=== PATIENT | male | born 1935 | race Caucasian/White ===

== ENCOUNTER 2017-05-10 19:02 | Inpatient (IN) | payer OTHER, BC ==
[~2017-05-10] VITALS: Ht 175.3 cm; Wt 67.0 kg
[~2017-05-10 19:02] MED LIST: ARICEPT10 MG PO; ARICEPT5 MG PO; CILOSTAZOL100 MG PO; COZAAR100 MG PO; CRESTOR10 MG PO; LO-DOSE ASPIRIN81 M1 PO; TUMS500 MG PO; ZOFRAN4 MG PO; [UNRECOGNIZED DRUG - OTHER] PO
[2017-05-10 19:33] LABS: EOSINOPHIL (%) 1.5 % (0-5); EOSINOPHIL COUNT 0.2 K/uL (0-0.3); HEMATOCRIT 36.4 % (38.0-50.0); IMMATURE GRANULOCYTE (%) 0.8 % (0.0-0.7); IMMATURE GRANULOCYTE COUNT 0.1 K/uL; LYMPHOCYTE COUNT 0.6 K/uL (1.0-2.8); MCH 29.4 PG (29.0-34.0); MCHC 32.4 G/DL (30.0-36.0); MCV 90.5 FL (86-99); MEAN PLAT.VOLUME 10.4 uM^3 (9.0-12.4); MONOCYTE (%) 13.9 % (3-12); MONOCYTE COUNT 1.4 K/uL (0-0.8); NEUTROPHIL (%) 77.6 % (45-76); PLATELET COUNT 204 K/uL (156-360); RBC DIS.WIDTH-CV 14.2 % (11.8-14.6); RBC DIS.WIDTH-SD 47.8 % (39-53); RED BLOOD COUNT 4.02 M/uL (4.00-5.50); WHITE BLOOD COUNT 10.3 K/uL (4.1-10.2)
[2017-05-10 19:43] LABS: CHLORIDE 101 mEq/L (99-109); SODIUM 134 mEq/L (136-147)
[2017-05-10 19:45] LABS: GLUCOSE 111 mg/dL (70-99)
[2017-05-10 19:47] LABS: ANION GAP 11 MEQ/L (2-14); TOTAL BILIRUBIN 0.5 mg/dL (0.0-1.0)
[2017-05-10 19:49] LABS: ALKALINE PHOSPHATASE 71 IU/L (3-129); GFR ESTIMATE (CALCULATED) > 59 mL/min/
[2017-05-10 19:50] LABS: UREA NITROGEN (BUN) 19 mg/dL (9-23)
[2017-05-10] MEDS ORDERED: DONEPEZIL HCL10 MG PO (21:00)
[2017-05-10] MEDS ORDERED: ROSUVASTATIN CAL5 MG PO (21:00)
[2017-05-10] MEDS ORDERED: TERBINAFINE HC250 MG PO (21:02)
[2017-05-10] MEDS ORDERED: MEMANTINE HCL10 MG PO (21:02)
[2017-05-10 22:15] LABS: ADD MIUA? NO; BILIRUBIN NEGATIVE; BLOOD NEGATIVE; COLOR YELLOW ((YELLOW)); GLUCOSE (STRIP) NEGATIVE; KETONES NEGATIVE; LEUKOCYTES NEGATIVE; NITRITE NEGATIVE; PROTEIN (STRIP) NEGATIVE; SPECIFIC GRAVITY 1.011 (1.000-1.030); UCUL ADDED? NO; UROBILINOGEN 0.2 MG/DL (0.2-1.0)
[2017-05-10 23:20] VITALS: BP 114/58
[2017-05-11 06:52] LABS: HEMATOCRIT 36.2 % (38.0-50.0); MCH 28.8 PG (29.0-34.0); MCHC 31.5 G/DL (30.0-36.0); MCV 91.4 FL (86-99); PLATELET COUNT 205 K/uL (156-360); RBC DIS.WIDTH-CV 14.3 % (11.8-14.6); RBC DIS.WIDTH-SD 48.4 % (39-53); RED BLOOD COUNT 3.96 M/uL (4.00-5.50); WHITE BLOOD COUNT 8.5 K/uL (4.1-10.2)
[2017-05-11 07:16] LABS: ALKALINE PHOSPHATASE 59 IU/L (3-129); ANION GAP 9 MEQ/L (2-14); CHLORIDE 112 MEQ/L (99-109); GFR ESTIMATE (CALCULATED) > 59 mL/min/; GLUCOSE 104 mg/dL (70-99); POTASSIUM 4.1 MEQ/L (3.7-5.4); SAMPLE HEMOLYSIS CHECK 0; SAMPLE ICTERIC CHECK 0; SAMPLE LIPEMIA CHECK 0; TOTAL BILIRUBIN 0.4 MG/DL (0.0-1.0); UREA NITROGEN (BUN) 15 mg/dL (9-23)
[2017-05-11 07:19] LABS: SODIUM 144 MEQ/L (136-147)
[2017-05-11 08:03] VITALS: BP 112/57
[2017-05-11 16:21] VITALS: BP 106/56
[2017-05-11 22:31] VITALS: BP 106/59
[2017-05-12 06:30] LABS: HEMATOCRIT 32.7 % (38.0-50.0); MCH 28.9 PG (29.0-34.0); MCHC 31.5 G/DL (30.0-36.0); MCV 91.9 FL (86-99); MEAN PLAT.VOLUME 11.2 uM^3 (9.0-12.4); PLATELET COUNT 206 K/uL (156-360); RBC DIS.WIDTH-CV 14.6 % (11.8-14.6); RBC DIS.WIDTH-SD 49.2 % (39-53); RED BLOOD COUNT 3.56 M/uL (4.00-5.50); WHITE BLOOD COUNT 8.5 K/uL (4.1-10.2)
[2017-05-12 06:57] LABS: ANION GAP 7 MEQ/L (2-14); C-REACTIVE PROTEIN 163.2 MG/L (0-10); CHLORIDE 109 MEQ/L (99-109); GFR ESTIMATE (CALCULATED) > 59 mL/min/; GLUCOSE 113 mg/dL (70-99); POTASSIUM 3.9 MEQ/L (3.7-5.4); SAMPLE HEMOLYSIS CHECK 0; SAMPLE ICTERIC CHECK 0; SAMPLE LIPEMIA CHECK 0; SODIUM 140 MEQ/L (136-147); UREA NITROGEN (BUN) 15 mg/dL (9-23)
[2017-05-12 07:27] VITALS: BP 112/63
[2017-05-12 08:06] LABS: ERTH.SED.RATE 41 MM/HR (0-20)
[2017-05-12 15:52] VITALS: BP 115/55
[2017-05-12 19:00] VITALS: BP 138/83
[2017-05-12 22:37] LABS: BILIRUBIN NEGATIVE; BLOOD NEGATIVE; COLOR YELLOW ((YELLOW)); GLUCOSE (STRIP) NEGATIVE; KETONES NEGATIVE; LEUKOCYTES NEGATIVE; NITRITE NEGATIVE; PROTEIN (STRIP) NEGATIVE; SPECIFIC GRAVITY 1.025 (1.000-1.030); UROBILINOGEN 0.2 MG/DL (0.2-1.0)
[2017-05-12 23:02] LABS: ADD MIUA? NO
[2017-05-12 23:41] VITALS: BP 106/59
[2017-05-13 05:22] VITALS: BP 123/70
[2017-05-13 07:45] VITALS: BP 127/72
[2017-05-13 16:22] VITALS: BP 130/64
[2017-05-13 23:44] VITALS: BP 130/66
[2017-05-14 06:23] LABS: HEMATOCRIT 32.5 % (38.0-50.0); MCH 29.8 PG (29.0-34.0); MCHC 33.2 G/DL (30.0-36.0); MCV 89.8 FL (86-99); MEAN PLAT.VOLUME 11.2 uM^3 (9.0-12.4); PLATELET COUNT 233 K/uL (156-360); RBC DIS.WIDTH-CV 14.7 % (11.8-14.6); RBC DIS.WIDTH-SD 48.4 % (39-53); RED BLOOD COUNT 3.62 M/uL (4.00-5.50); WHITE BLOOD COUNT 10.9 K/uL (4.1-10.2)
[2017-05-14 06:54] LABS: ANION GAP 9 MEQ/L (2-14); CHLORIDE 107 MEQ/L (99-109); GFR ESTIMATE (CALCULATED) > 59 mL/min/; GLUCOSE 117 mg/dL (70-99); LACTATE DEHYDROGENASE 149 IU/L (20-246); POTASSIUM 3.8 MEQ/L (3.7-5.4); SAMPLE HEMOLYSIS CHECK 0; SAMPLE ICTERIC CHECK 0; SAMPLE LIPEMIA CHECK 0; SODIUM 140 MEQ/L (136-147); UREA NITROGEN (BUN) 16 mg/dL (9-23)
[2017-05-14 07:38] LABS: INTER. NORMALIZED RATIO 1.2; PROTHROMBIN TIME 13.4 SEC (10.2-12.9)
[2017-05-14 07:41] LABS: PTT 31.3 SEC (25-37)
[2017-05-14 08:53] VITALS: BP 107/62
[2017-05-14 09:15] LABS: TYPE OF FLUID PLEURAL
[2017-05-14 09:41] LABS: RED CELL DILUTION 1
[2017-05-14 09:42] LABS: BODY FLUID WBC'S 373 /MM^3 (0-500); WBC AREA COUNTED 8; WBC DILUTION 1; WHITE CELL RAW COUNT 298
[2017-05-14 09:43] LABS: BODY FLUID RBC'S 3100 /MM^3 (0-100); RED CELL AREA COUNTED 0.4
[2017-05-14 10:07] LABS: BODY FLUID EOSINOPHILS 0 % (0-25); MONO RAW COUNT 7; MONONUCLEAR WBC'S 7 %; POLY RAW COUNT 93; POLYNUCLEAR WBC'S 93 % (0-25)
[2017-05-14 10:28] LABS: BODY FLUID LDH 61 IU/L
[2017-05-14 10:34] LABS: BODY FLUID PROTEIN < 3 G/DL
[2017-05-14 16:30] VITALS: BP 108/59
[2017-05-14 23:21] VITALS: BP 108/61
[2017-05-15 06:11] LABS: HEMATOCRIT 31.8 % (38.0-50.0); MCH 29.7 PG (29.0-34.0); MCV 89.8 FL (86-99); MEAN PLAT.VOLUME 10.8 uM^3 (9.0-12.4); PLATELET COUNT 236 K/uL (156-360); RBC DIS.WIDTH-CV 14.7 % (11.8-14.6); RED BLOOD COUNT 3.54 M/uL (4.00-5.50)
[2017-05-15 07:30] LABS: ANION GAP 9 MEQ/L (2-14); CHLORIDE 106 MEQ/L (99-109); GFR ESTIMATE (CALCULATED) > 59 mL/min/; GLUCOSE 111 mg/dL (70-99); POTASSIUM 4.1 MEQ/L (3.7-5.4); SAMPLE HEMOLYSIS CHECK 0; SAMPLE ICTERIC CHECK 0; SAMPLE LIPEMIA CHECK 0; SODIUM 140 MEQ/L (136-147); UREA NITROGEN (BUN) 19 mg/dL (9-23)
[2017-05-15 07:55] VITALS: BP 115/67
[2017-05-15 15:50] VITALS: BP 106/59
[2017-05-15 18:35] LABS: GLOBULINS 2.3 G/DL (2.3-3.5); TRIGLYCERIDES 133 MG/DL (Normal: <150)
[2017-05-15 18:49] LABS: FERRITIN 890 NG/ML (22-322)
[2017-05-15 19:50] VITALS: BP 107/61
[2017-05-16] VITALS (7 sets, daily range): BP systolic 100–128; BP diastolic 58–74
[2017-05-16 06:45] LABS: HEMATOCRIT 32.7 % (38.0-50.0); MCH 28.3 PG (29.0-34.0); MCHC 31.8 G/DL (30.0-36.0); MCV 89.1 FL (86-99); MEAN PLAT.VOLUME 10.8 uM^3 (9.0-12.4); PLATELET COUNT 280 K/uL (156-360); RBC DIS.WIDTH-CV 14.2 % (11.8-14.6); RBC DIS.WIDTH-SD 46.3 % (39-53); RED BLOOD COUNT 3.67 M/uL (4.00-5.50); WHITE BLOOD COUNT 8.4 K/uL (4.1-10.2)
[2017-05-16 07:14] LABS: ANION GAP 7 MEQ/L (2-14); CHLORIDE 105 MEQ/L (99-109); GFR ESTIMATE (CALCULATED) > 59 mL/min/; SAMPLE HEMOLYSIS CHECK 0; SAMPLE ICTERIC CHECK 0; SAMPLE LIPEMIA CHECK 0; SODIUM 140 MEQ/L (136-147); UREA NITROGEN (BUN) 23 mg/dL (9-23)
[2017-05-16 07:16] LABS: GLUCOSE 178 mg/dL (70-99)
[2017-05-16 10:32] LABS: TREPONEMA ANTIBODY NEGATIVE (NEGATIVE)
[2017-05-16 12:14] LABS: HIV-1/2 AB/AG COMBO Nonreactive
[2017-05-16 16:05] LABS: INTERNAL CONTROL VALID? YES; RESP. SYNCITIAL VIRUS ANTIGEN NEGATIVE
[2017-05-16 16:16] LABS: EBV Source Serum (())
[2017-05-16 16:31] LABS: INFLUENZA A VIRAL ANTIGEN NEGATIVE; INFLUENZA B VIRAL ANTIGEN NEGATIVE
[2017-05-17] MEDS ORDERED: FUROSEMIDE20 MG PO (07:54)
[2017-05-17] MEDS ORDERED: PRAVASTATIN SOD40 MG PO (07:54)
[2017-05-17] MEDS ORDERED: FAMOTIDINE20 MG PO (07:55)
[2017-05-17] MEDS ORDERED: PREDNISONE20 MG PO (07:55)
[2017-05-17 14:53] LABS: ALBUMIN 1.84 G/DL (3.6-4.9); ALBUMIN PERCENT 40.8 % (49.3-67.1); ALPHA-1 GLOBULIN 0.63 G/DL (0.15-0.40); ALPHA-1 PERCENT 13.9 % (2.1-5.5); ALPHA-2 PERCENT 20.1 % (6.2-11.6); BETA PERCENT 14.2 % (8.9-15.8)
[2017-05-18 23:01] LABS: TB AG-NIL <0.00 IU/mL (())
[2017-05-21 11:05] LABS: HIV RNA QUANT LOG10 RESULT < 1.30 Log(10) (<1.30); HIV RNA QUANT VIRAL LOAD < 20 copy/mL (<20)
== END 2017-05-17 12:49 | disposition home health service (06) | DRG 864 ==
LOC: EME 19:02 → EDOF 21:25 → 5EAST 21:25 → ENRESERV 21:28 → 5EAST 22:41 → ENPENDDIS 05-17 → 5EAST 05-17 12:49
PROVIDERS: Family Medicine; Hospitalist; Internal Medicine; Physician Assistant Medical; Radiology Diagnostic Radiology
PROC: 0W9B3ZZ Drainage of Left Pleural Cavity, Percutaneous Approach (ICD-10-PCS; principal; 2017-05-14)
DX: R50.9 Fever, unspecified (principal); J96.01 Acute respiratory failure with hypoxia; R65.10 Systemic inflammatory response syndrome (SIRS) of non-infectious origin without acute organ dysfunction; E87.2 Acidosis; F05 Delirium due to known physiological condition; J90 Pleural effusion, not elsewhere classified; J98.11 Atelectasis; J81.1 Chronic pulmonary edema; B35.1 Tinea unguium; I95.9 Hypotension, unspecified; Z66 Do not resuscitate; B35.3 Tinea pedis; E78.5 Hyperlipidemia, unspecified; G30.9 Alzheimer's disease, unspecified; F02.80 Dementia in other diseases classified elsewhere, unspecified severity, without behavioral disturbance, psychotic disturbance, mood disturbance, and anxiety; I10 Essential (primary) hypertension; R21 Rash and other nonspecific skin eruption; D72.828 Other elevated white blood cell count; R59.0 Localized enlarged lymph nodes; I27.20 Pulmonary hypertension, unspecified; I25.10 Atherosclerotic heart disease of native coronary artery without angina pectoris; Z85.46 Personal history of malignant neoplasm of prostate; Z87.891 Personal history of nicotine dependence; Z90.79 Acquired absence of other genital organ(s); Z99.81 Dependence on supplemental oxygen
CPT/HCPCS: 71010; 71250; 74177; 76942; 80048; 80053; 81003; 82728; 83605; 83615; 83615 91; 84157; 84165; 84478; 85025; 85027; 85610; 85651; 85730; 86038; 86140; 86334; 86430; 86480 90; 86703; 86780; 87040; 87070; 87075; 87205; 87420; 87502; 87536; 87651 90; 87799 90; 89051; 93306; 93970; 94799; 99281; 99285; J0696; J1644; J1940; J7030; J7050; J7512

== ENCOUNTER 2017-05-18 18:29 | Inpatient (IN) | payer OTHER, BC ==
[~2017-05-18] VITALS: Ht 175.3 cm; Wt 63.0 kg
[~2017-05-18 18:29] MED LIST changes: +DONEPEZIL HCL10 MG PO; +FAMOTIDINE20 MG PO; +FUROSEMIDE20 MG PO; +MEMANTINE HCL10 MG PO; +PRAVASTATIN SOD40 MG PO; +PREDNISONE20 MG PO; +ROSUVASTATIN CAL5 MG PO; +TERBINAFINE HC250 MG PO
[2017-05-18 19:56] LABS: MCH 28.8 PG (29.0-34.0); MCHC 32.1 G/DL (30.0-36.0); MCV 89.7 FL (86-99); MEAN PLAT.VOLUME 10.7 uM^3 (9.0-12.4); NRBC (%) 0.2 /100 WBC (0-0); RBC DIS.WIDTH-CV 14.6 % (11.8-14.6); RBC DIS.WIDTH-SD 47.8 % (39-53); RED BLOOD COUNT 3.79 M/uL (4.00-5.50); WHITE BLOOD COUNT 16.7 K/uL (4.1-10.2)
[2017-05-18 20:11] LABS: CHLORIDE 107 mEq/L (99-109); POTASSIUM 4.1 mEq/L (3.7-5.4); SODIUM 140 mEq/L (136-147)
[2017-05-18 20:12] LABS: GLUCOSE 175 mg/dL (70-99)
[2017-05-18 20:14] LABS: ANION GAP 7 MEQ/L (2-14)
[2017-05-18 20:16] LABS: GFR ESTIMATE (CALCULATED) > 59 mL/min/
[2017-05-18 20:17] LABS: UREA NITROGEN (BUN) 23 mg/dL (9-23)
[2017-05-18 20:20] LABS: TROP-I INTERPRETATION NEGATIVE; TROPONIN-I 0.01 ng/mL (0.0-0.30)
[2017-05-18 20:56] LABS: ANISOCYTOSIS 1+; HYPOCHROMASIA 1+; MICROCYTOSIS 1+; OVALOCYTES 1+; PLAT.SUFFICIENCY ADEQUATE; POLYCHROMASIA 1+
[2017-05-18 21:00] LABS: PLATELET COUNT 421 K/uL (156-360)
[2017-05-18 21:05] LABS: ABS NEUTROPHIL COUNT 15.3; ATYPICAL LYMPHOCYTE 0.9 %; BAND NEUTROPHILS 2.7 % (0-8.0); EOSINOPHIL ABS CT 0; LYMPHOCYTES 1.8 % (15.0-45.0); METAMYELOCYTES 0.9 %; SEG.NEUTROPHILS 89.1 % (46.0-76.0)
[2017-05-19] VITALS (7 sets, daily range): BP systolic 124–147; BP diastolic 66–74
[2017-05-19 00:18] LABS: ADD MIUA? NO; BILIRUBIN NEGATIVE; BLOOD NEGATIVE; COLOR COLORLESS ((YELLOW)); GLUCOSE (STRIP) NEGATIVE; KETONES NEGATIVE; LEUKOCYTES NEGATIVE; NITRITE NEGATIVE; PROTEIN (STRIP) NEGATIVE; SPECIFIC GRAVITY 1.006 (1.000-1.030); UCUL ADDED? NO; UROBILINOGEN 0.2 MG/DL (0.2-1.0)
[2017-05-19 05:49] LABS: HEMATOCRIT 33.5 % (38.0-50.0); MCH 28.3 PG (29.0-34.0); MCHC 31.6 G/DL (30.0-36.0); MCV 89.6 FL (86-99); MEAN PLAT.VOLUME 10.8 uM^3 (9.0-12.4); NRBC (%) 0.2 /100 WBC (0-0); PLATELET COUNT 423 K/uL (156-360); RBC DIS.WIDTH-CV 14.5 % (11.8-14.6); RBC DIS.WIDTH-SD 46.7 % (39-53); RED BLOOD COUNT 3.74 M/uL (4.00-5.50)
[2017-05-19 06:23] LABS: ANION GAP 8 MEQ/L (2-14); CHLORIDE 103 MEQ/L (99-109); GFR ESTIMATE (CALCULATED) > 59 mL/min/; GLUCOSE 121 mg/dL (70-99); MAGNESIUM 2.3 mg/dl (1.3-2.7); POTASSIUM 4.1 MEQ/L (3.7-5.4); SAMPLE HEMOLYSIS CHECK 0; SAMPLE ICTERIC CHECK 0; SAMPLE LIPEMIA CHECK 0; SODIUM 141 MEQ/L (136-147); UREA NITROGEN (BUN) 24 mg/dL (9-23)
[2017-05-19 06:34] LABS: ABS NEUTROPHIL COUNT 15.3; BAND NEUTROPHILS 1.8 % (0-8.0); EOSINOPHIL ABS CT 0; INSTRUMENT ABS NEUTROPHIL CT 13.3 K/uL; LYMPHOCYTES 5.3 % (15.0-45.0); MYELOCYTES 0.9 %; PLAT.SUFFICIENCY ADEQUATE; SEG.NEUTROPHILS 88.4 % (46.0-76.0)
[2017-05-19 07:40] LABS: POINT-OF-CARE METER ID UU13113774
[2017-05-19 09:32] LABS: BASE EXCESS 6.6 mEq/L (-3 to +3); BICARBONATE 29.1 mEq/L (22-26); METHEMOGLOBIN 1.7 % (0-1.5); PCO2 34 mm Hg (35-45); PO2 60 mm Hg (80-100); pH 7.54 (7.35-7.45)
[2017-05-19 09:33] LABS: COMMENTS - BLOOD GASES A+C+; DEVICE NC; O2 FLOW 6 L/MIN; SITE RR; TOTAL RESP RATE 18 resp/min
[2017-05-19 10:25] LABS: TROP-I INTERPRETATION NEGATIVE; TROPONIN-I < 0.01 ng/mL (0.0-0.30)
[2017-05-19 11:34] LABS: POINT-OF-CARE METER ID UU13113774
[2017-05-19 15:08] LABS: TROP-I INTERPRETATION NEGATIVE; TROPONIN-I 0.02 ng/mL (0.0-0.30)
[2017-05-19 16:12] LABS: POINT-OF-CARE METER ID UU13113725
[2017-05-19 20:12] LABS: TROP-I INTERPRETATION NEGATIVE; TROPONIN-I 0.01 ng/mL (0.0-0.30)
[2017-05-19 22:07] LABS: POINT-OF-CARE METER ID UU13113725
[2017-05-20 06:01] LABS: POINT-OF-CARE METER ID UU13113774
[2017-05-20 06:04] VITALS: BP 131/63
[2017-05-20 06:45] VITALS: BP 136/70
[2017-05-20 11:24] LABS: POINT-OF-CARE METER ID UU13113774
[2017-05-20 15:10] VITALS: BP 113/58
[2017-05-20 16:17] LABS: POINT-OF-CARE METER ID UU13113774
[2017-05-20 21:51] LABS: POINT-OF-CARE METER ID UU13113774
[2017-05-21 00:05] VITALS: BP 136/75
[2017-05-21 05:46] LABS: BASOPHIL COUNT 0.1 K/uL (0-0.1); EOSINOPHIL (%) 1.8 % (0-5); EOSINOPHIL COUNT 0.3 K/uL (0-0.3); HEMATOCRIT 34.4 % (38.0-50.0); IMMATURE GRANULOCYTE (%) 4.3 % (0.0-0.7); IMMATURE GRANULOCYTE COUNT 0.7 K/uL; LYMPHOCYTE COUNT 1.8 K/uL (1.0-2.8); MCH 28.2 PG (29.0-34.0); MCHC 31.1 G/DL (30.0-36.0); MCV 90.8 FL (86-99); MEAN PLAT.VOLUME 10.3 uM^3 (9.0-12.4); MONOCYTE (%) 7.4 % (3-12); MONOCYTE COUNT 1.3 K/uL (0-0.8); NEUTROPHIL (%) 75.8 % (45-76); PLATELET COUNT 443 K/uL (156-360); RBC DIS.WIDTH-CV 15.1 % (11.8-14.6); RBC DIS.WIDTH-SD 49.8 % (39-53); RED BLOOD COUNT 3.79 M/uL (4.00-5.50); WHITE BLOOD COUNT 17.1 K/uL (4.1-10.2)
[2017-05-21 06:04] LABS: POINT-OF-CARE METER ID UU13113774
[2017-05-21 06:09] LABS: ANION GAP 5 MEQ/L (2-14); CHLORIDE 105 MEQ/L (99-109); GFR ESTIMATE (CALCULATED) > 59 mL/min/; GLUCOSE 107 mg/dL (70-99); POTASSIUM 3.9 MEQ/L (3.7-5.4); SAMPLE HEMOLYSIS CHECK 0; SAMPLE ICTERIC CHECK 0; SAMPLE LIPEMIA CHECK 0; SODIUM 144 MEQ/L (136-147); UREA NITROGEN (BUN) 33 mg/dL (9-23)
[2017-05-21 06:40] VITALS: BP 126/65
[2017-05-21 11:24] VITALS: BP 107/58
[2017-05-21 11:32] LABS: POINT-OF-CARE METER ID UU13113774
[2017-05-21 15:11] VITALS: BP 116/56
[2017-05-21 16:35] LABS: POINT-OF-CARE METER ID UU13113774
[2017-05-21 20:18] VITALS: BP 114/57
[2017-05-21 21:00] LABS: POINT-OF-CARE METER ID UU13113725
[2017-05-21 23:22] VITALS: BP 111/57
[2017-05-22 06:06] LABS: POINT-OF-CARE METER ID UU13113725
[2017-05-22 08:00] VITALS: BP 115/60
[2017-05-22 11:01] LABS: POINT-OF-CARE METER ID UU13113725
[2017-05-22 11:58] LABS: ANION GAP 5 MEQ/L (2-14); CHLORIDE 103 MEQ/L (99-109); GFR ESTIMATE (CALCULATED) > 59 mL/min/; GLUCOSE 169 mg/dL (70-99); POTASSIUM 3.8 MEQ/L (3.7-5.4); SAMPLE HEMOLYSIS CHECK 0; SAMPLE ICTERIC CHECK 0; SAMPLE LIPEMIA CHECK 0; SODIUM 140 MEQ/L (136-147); UREA NITROGEN (BUN) 33 mg/dL (9-23)
[2017-05-22 12:40] VITALS: BP 114/67
[2017-05-22 16:32] LABS: POINT-OF-CARE METER ID UU13113774
[2017-05-22 16:44] VITALS: BP 123/66
[2017-05-22 19:54] VITALS: BP 13/64
[2017-05-22 21:16] LABS: POINT-OF-CARE METER ID UU13113774
[2017-05-22 23:05] VITALS: BP 125/70
[2017-05-23 03:47] VITALS: BP 144/68
[2017-05-23 06:18] LABS: ANION GAP 4 MEQ/L (2-14); CHLORIDE 104 MEQ/L (99-109); GFR ESTIMATE (CALCULATED) > 59 mL/min/; POTASSIUM 4.5 MEQ/L (3.7-5.4); SAMPLE HEMOLYSIS CHECK 0; SAMPLE ICTERIC CHECK 0; SAMPLE LIPEMIA CHECK 0; SODIUM 141 MEQ/L (136-147); UREA NITROGEN (BUN) 26 mg/dL (9-23)
[2017-05-23 06:19] LABS: GLUCOSE 87 mg/dL (70-99)
[2017-05-23 07:13] VITALS: BP 112/59
[2017-05-23 11:28] LABS: POINT-OF-CARE METER ID UU13113774
[2017-05-23] MEDS ORDERED: CEFDINIR300 MG PO (12:58)
[2017-05-23] MEDS ORDERED: FUROSEMIDE20 MG PO (13:00)
[2017-05-24 14:40] LABS: Neutrophil Cytoplasmic Aby Negative (Negative)
== END 2017-05-23 15:05 | disposition home or self-care (01) | DRG 189 ==
LOC: EME 18:29 → 5EAST 23:21 → EDOF 23:21 → ENRESERV 23:24 → 5EAST 05-19 03:34
PROVIDERS: Emergency Medicine; Hospitalist; Internal Medicine Pulmonary Disease; Physician Assistant Medical; Student in an Organized Health Care Education/Training Program
DX: J81.1 Chronic pulmonary edema (principal); J18.9 Pneumonia, unspecified organism; J44.1 Chronic obstructive pulmonary disease with (acute) exacerbation; J96.21 Acute and chronic respiratory failure with hypoxia; I27.20 Pulmonary hypertension, unspecified; F02.80 Dementia in other diseases classified elsewhere, unspecified severity, without behavioral disturbance, psychotic disturbance, mood disturbance, and anxiety; G30.9 Alzheimer's disease, unspecified; E78.5 Hyperlipidemia, unspecified; R30.9 Painful micturition, unspecified; R73.9 Hyperglycemia, unspecified; H35.30 Unspecified macular degeneration; I11.0 Hypertensive heart disease with heart failure; R32 Unspecified urinary incontinence; I34.0 Nonrheumatic mitral (valve) insufficiency; R26.9 Unspecified abnormalities of gait and mobility; D64.9 Anemia, unspecified; T38.0X5A Adverse effect of glucocorticoids and synthetic analogues, initial encounter; Z87.891 Personal history of nicotine dependence; Z80.0 Family history of malignant neoplasm of digestive organs; Z99.81 Dependence on supplemental oxygen; Z85.46 Personal history of malignant neoplasm of prostate; Z68.1 Body mass index [BMI] 19.9 or less, adult; Y95 Nosocomial condition; Z90.79 Acquired absence of other genital organ(s)
CPT/HCPCS: 36600; 71010; 71020; 80048; 81003; 82803; 82948; 83605; 83735; 83880; 84484; 85025; 86021 90; 87040; 93005; 94640; 94640 76; 94799; 97530 GO; 99202; 99281; 99285; J0692; J0696; J1644; J1815; J1940; J1956; J2270; J3370; J7050; J7512; S0028

== ENCOUNTER 2017-05-28 09:34 | Observation (INO) | payer OTHER, BC ==
[~2017-05-28] VITALS: Ht 175.3 cm; Wt 64.0 kg
[~2017-05-28 09:34] MED LIST changes: +CEFDINIR300 MG PO
[2017-05-28 10:32] LABS: CHLORIDE 106 mEq/L (99-109); POTASSIUM 4.1 mEq/L (3.7-5.4); SODIUM 135 mEq/L (136-147)
[2017-05-28 10:34] LABS: GLUCOSE 118 mg/dL (70-99)
[2017-05-28 10:36] LABS: ANION GAP 6 MEQ/L (2-14)
[2017-05-28 10:38] LABS: GFR ESTIMATE (CALCULATED) > 59 mL/min/
[2017-05-28 10:39] LABS: UREA NITROGEN (BUN) 18 mg/dL (9-23)
[2017-05-28 10:41] LABS: HEMATOCRIT 33.7 % (38.0-50.0); MCH 28.7 PG (29.0-34.0); MCHC 31.5 G/DL (30.0-36.0); MCV 91.3 FL (86-99); RBC DIS.WIDTH-CV 15.9 % (11.8-14.6); RBC DIS.WIDTH-SD 52.8 % (39-53); RED BLOOD COUNT 3.69 M/uL (4.00-5.50); WHITE BLOOD COUNT 11.2 K/uL (4.1-10.2)
[2017-05-28 10:44] LABS: TROP-I INTERPRETATION NEGATIVE; TROPONIN-I < 0.01 ng/mL (0.0-0.30)
[2017-05-28 11:15] LABS: EOSINOPHIL (%) 0.9 % (0-5); EOSINOPHIL COUNT 0.1 K/uL (0-0.3); HEMATOLOGY COMMENT 1 UNABLE TO REPORT; IMMATURE GRANULOCYTE (%) 1.6 % (0.0-0.7); IMMATURE GRANULOCYTE COUNT 0.2 K/uL; INSTRUMENT ABS NEUTROPHIL CT 8.7 K/uL; MONOCYTE (%) 11.2 % (3-12); MONOCYTE COUNT 1.3 K/uL (0-0.8); NEUTROPHIL (%) 77.6 % (45-76); NEUTROPHIL COUNT 8.7 K/uL (1.8-6.4)
[2017-05-28 11:17] LABS: PLATELET COUNT UNABLE TO REPORT K/uL (156-360)
[2017-05-28] MEDS ORDERED: ROSUVASTATIN CAL5 MG PO (12:47)
[2017-05-28 13:21] VITALS: BP 113/59
[2017-05-28 16:20] VITALS: BP 91/52
[2017-05-28 19:20] LABS: TROP-I INTERPRETATION NEGATIVE; TROPONIN-I 0.01 ng/mL (0.0-0.30)
[2017-05-28 19:45] VITALS: BP 124/60
[2017-05-28 23:58] VITALS: BP 118/59
[2017-05-29 03:44] LABS: IRON 30 MCG/DL (35-150); TROP-I INTERPRETATION NEGATIVE; TROPONIN-I < 0.01 ng/mL (0.0-0.30)
[2017-05-29 04:00] VITALS: BP 123/61
[2017-05-29 07:51] LABS: FERRITIN 337 NG/ML (22-322)
[2017-05-29 08:07] VITALS: BP 100/57
== END 2017-05-29 11:50 | disposition home or self-care (01) ==
LOC: EME 09:34 → 5WEST 11:55 → EDOF 11:55 → ENRESERV 12:00 → CANRESERV 12:00 → ENRESERV 12:01 → EDOF 12:09 → ENRESERV 12:10 → EDOF 12:15 → ENRESERV 12:43 → 5WEST 13:06
PROVIDERS: Emergency Medicine; Internal Medicine
DX: R06.02 Shortness of breath (principal); J84.10 Pulmonary fibrosis, unspecified; R09.02 Hypoxemia; I11.0 Hypertensive heart disease with heart failure; I50.9 Heart failure, unspecified; E78.5 Hyperlipidemia, unspecified; I67.3 Progressive vascular leukoencephalopathy; F02.80 Dementia in other diseases classified elsewhere, unspecified severity, without behavioral disturbance, psychotic disturbance, mood disturbance, and anxiety; R53.1 Weakness; Z85.46 Personal history of malignant neoplasm of prostate; H35.30 Unspecified macular degeneration; Z87.891 Personal history of nicotine dependence; Z80.0 Family history of malignant neoplasm of digestive organs
CPT/HCPCS: 71010; 71275; 80048; 82607; 82728; 82747 90; 83540; 83880; 84466; 84484; 85025; 93005; 94640; 99202; 99281; 99285; G0378; J1650; J7512

== ENCOUNTER 2017-06-10 08:40 | Emergency (ER) | payer OTHER, BC ==
[~2017-06-10] VITALS: Ht 175.3 cm; Wt 60.4 kg
[2017-06-10 09:59] LABS: EOSINOPHIL (%) 0.8 % (0-5); EOSINOPHIL COUNT 0.1 K/uL (0-0.3); IMMATURE GRANULOCYTE (%) 0.5 % (0.0-0.7); IMMATURE GRANULOCYTE COUNT 0.1 K/uL; INSTRUMENT ABS NEUTROPHIL CT 11.5 K/uL; LYMPHOCYTE COUNT 1.1 K/uL (1.0-2.8); MCH 28.9 PG (29.0-34.0); MCHC 31.6 G/DL (30.0-36.0); MCV 91.4 FL (86-99); NEUTROPHIL (%) 83.8 % (45-76); NEUTROPHIL COUNT 11.5 K/uL (1.8-6.4); PLATELET COUNT 237 K/uL (156-360); RBC DIS.WIDTH-CV 15.8 % (11.8-14.6); RBC DIS.WIDTH-SD 53.1 % (39-53); RED BLOOD COUNT 4.05 M/uL (4.00-5.50); WHITE BLOOD COUNT 13.8 K/uL (4.1-10.2)
[2017-06-10 10:15] LABS: CHLORIDE 104 mEq/L (99-109); POTASSIUM 4.6 mEq/L (3.7-5.4); SODIUM 139 mEq/L (136-147)
[2017-06-10 10:16] LABS: GLUCOSE 115 mg/dL (70-99)
[2017-06-10 10:18] LABS: ANION GAP 10 MEQ/L (2-14)
[2017-06-10 10:20] LABS: GFR ESTIMATE (CALCULATED) > 59 mL/min/
[2017-06-10 10:21] LABS: UREA NITROGEN (BUN) 14 mg/dL (9-23)
[2017-06-10 14:42] LABS: ADD MIUA? NO; BILIRUBIN NEGATIVE; BLOOD NEGATIVE; COLOR YELLOW ((YELLOW)); GLUCOSE (STRIP) NEGATIVE; KETONES NEGATIVE; LEUKOCYTES NEGATIVE; NITRITE NEGATIVE; PROTEIN (STRIP) NEGATIVE; SPECIFIC GRAVITY 1.019 (1.000-1.030); UCUL ADDED? NO; UROBILINOGEN 0.2 MG/DL (0.2-1.0)
[2017-06-10] MEDS ORDERED: AUGMENTIN875 MG PO (15:35)
[2017-06-10 15:54] VITALS: BP 133/74
== END 2017-06-10 15:55 | disposition home or self-care (01) ==
LOC: EME 08:40
PROC: 3E0234Z Introduction of Serum, Toxoid and Vaccine into Muscle, Percutaneous Approach (ICD-10-PCS; principal; 2017-06-10)
DX: L03.113 Cellulitis of right upper limb (principal); S60.511A Abrasion of right hand, initial encounter; W54.0XXA Bitten by dog, initial encounter; M54.9 Dorsalgia, unspecified; Z23 Encounter for immunization; I10 Essential (primary) hypertension; E78.5 Hyperlipidemia, unspecified; G30.9 Alzheimer's disease, unspecified; F02.80 Dementia in other diseases classified elsewhere, unspecified severity, without behavioral disturbance, psychotic disturbance, mood disturbance, and anxiety; Z85.46 Personal history of malignant neoplasm of prostate; Z87.891 Personal history of nicotine dependence; Z79.82 Long term (current) use of aspirin
CPT/HCPCS: 73130; 74176; 80048; 81003; 83605; 85025; 93005; 99281; 99284

== ENCOUNTER 2017-09-09 19:27 | Inpatient (IN) | payer OTHER, BC ==
[~2017-09-09] VITALS: Ht 175.3 cm; Wt 59.3 kg
[~2017-09-09 19:27] MED LIST changes: +AUGMENTIN875 MG PO
[2017-09-09] MEDS ORDERED: VITAMIN D32000 UNI1 PO (22:15)
[2017-09-09] MEDS ORDERED: CALCIUM 500 MG1 EACH PO (22:16)
[2017-09-10 00:50] LABS: APPEARANCE SL.HAZY ((CLEAR)); BILIRUBIN NEGATIVE; BLOOD SMALL; COLOR YELLOW ((YELLOW)); GLUCOSE (STRIP) NEGATIVE; KETONES NEGATIVE; LEUKOCYTES SMALL; NITRITE POSITIVE; PROTEIN (STRIP) 100; SPECIFIC GRAVITY 1.013 (1.000-1.030); UROBILINOGEN 0.2 MG/DL (0.2-1.0)
[2017-09-10 00:56] LABS: BACTERIA RARE /HPF; EPITHELIAL CELLS NONE SEEN /HPF; HYALINE CASTS 0-5 /LPF; MUCUS NONE SEEN /LPF; RED BLOOD CELLS 0-5 /HPF (0-5); UCUL ADDED? YES; WHITE BLOOD CELLS 15-20 /HPF (0-5)
[2017-09-10 05:37] VITALS: BP 179/83
[2017-09-10 06:10] LABS: HEMATOCRIT 28.1 % (38.0-50.0); HEMOGLOBIN 8.8 G/DL (12.5-16.6); MCH 28.4 PG (29.0-34.0); MCHC 31.3 G/DL (30.0-36.0); MCV 90.6 FL (86-99); PLATELET COUNT 89 K/uL (156-360); RBC DIS.WIDTH-CV 15.9 % (11.8-14.6); RBC DIS.WIDTH-SD 53.1 % (39-53); WHITE BLOOD COUNT 8.1 K/uL (4.1-10.2)
[2017-09-10 06:33] LABS: ALBUMIN 2.7 G/DL (3.2-4.8); CHLORIDE 110 MEQ/L (99-109); CREATININE 1.8 MG/DL (0.6-1.3); GFR ESTIMATE (CALCULATED) 39 mL/min/ (58.99-99999); GLUCOSE 101 mg/dL (70-99); PHOSPHORUS 3.5 mg/dL (2.5-4.9); POTASSIUM 3.9 MEQ/L (3.7-5.4); SODIUM 141 MEQ/L (136-147); UREA NITROGEN (BUN) 36 mg/dL (9-23)
[2017-09-10 07:15] VITALS: BP 113/66
[2017-09-10 15:10] VITALS: BP 114/73
[2017-09-10 21:35] VITALS: BP 172/84
[2017-09-11 00:39] VITALS: BP 160/70
[2017-09-11 07:00] LABS: BASOPHIL (%) 0.3 % (0-1); EOSINOPHIL (%) 1.9 % (0-5); EOSINOPHIL COUNT 0.2 K/uL (0-0.3); HEMATOCRIT 28.1 % (38.0-50.0); HEMOGLOBIN 8.9 G/DL (12.5-16.6); IMMATURE GRANULOCYTE (%) 0.6 % (0.0-0.7); LYMPHOCYTE (%) 11.5 % (15-42); LYMPHOCYTE COUNT 0.9 K/uL (1.0-2.8); MCH 28.7 PG (29.0-34.0); MCHC 31.7 G/DL (30.0-36.0); MCV 90.6 FL (86-99); MONOCYTE (%) 12.8 % (3-12); NEUTROPHIL (%) 72.9 % (45-76); NEUTROPHIL COUNT 5.8 K/uL (1.8-6.4); PLATELET COUNT 87 K/uL (156-360); RBC DIS.WIDTH-CV 16.3 % (11.8-14.6); RBC DIS.WIDTH-SD 53.7 % (39-53); WHITE BLOOD COUNT 7.9 K/uL (4.1-10.2)
[2017-09-11 07:27] LABS: CHLORIDE 112 MEQ/L (99-109); CREATININE 1.8 MG/DL (0.6-1.3); GFR ESTIMATE (CALCULATED) 39 mL/min/ (58.99-99999); GLUCOSE 104 mg/dL (70-99); HDL CHOLESTEROL 39 MG/DL (Desirable>=40); LDL CHOLESTEROL 93 mg/dL (Desirable<100); MAGNESIUM 2.2 mg/dl (1.3-2.7); NON-HDL CHOLESTEROL 133 mg/dL (Desirable<160); PHOSPHORUS 3.5 mg/dL (2.5-4.9); POTASSIUM 3.9 MEQ/L (3.7-5.4); SODIUM 142 MEQ/L (136-147); TOTAL CHOLESTEROL 172 mg/dL (Desirable<200); TRIGLYCERIDES 198 MG/DL (Normal: <150); UREA NITROGEN (BUN) 33 mg/dL (9-23)
[2017-09-11 08:37] VITALS: BP 159/84
[2017-09-11 17:25] VITALS: BP 164/79
[2017-09-11 23:41] VITALS: BP 143/71
[2017-09-12 07:13] LABS: ALBUMIN 2.6 G/DL (3.2-4.8); CHLORIDE 107 MEQ/L (99-109); CREATININE 1.8 MG/DL (0.6-1.3); GFR ESTIMATE (CALCULATED) 39 mL/min/ (58.99-99999); GLUCOSE 99 mg/dL (70-99); POTASSIUM 4.2 MEQ/L (3.7-5.4); SODIUM 142 MEQ/L (136-147); UREA NITROGEN (BUN) 29 mg/dL (9-23)
[2017-09-12 08:10] VITALS: BP 162/79
[2017-09-12 08:15] LABS: BASOPHIL (%) 0.2 % (0-1); EOSINOPHIL (%) 2.1 % (0-5); EOSINOPHIL COUNT 0.2 K/uL (0-0.3); HEMATOCRIT 28.7 % (38.0-50.0); HEMOGLOBIN 9.1 G/DL (12.5-16.6); IMMATURE GRANULOCYTE (%) 0.8 % (0.0-0.7); LYMPHOCYTE (%) 11.3 % (15-42); MCH 29.1 PG (29.0-34.0); MCHC 31.7 G/DL (30.0-36.0); MCV 91.7 FL (86-99); MONOCYTE (%) 12.7 % (3-12); MONOCYTE COUNT 1.1 K/uL (0-0.8); NEUTROPHIL (%) 72.9 % (45-76); NEUTROPHIL COUNT 6.3 K/uL (1.8-6.4); PLATELET COUNT 99 K/uL (156-360); RBC DIS.WIDTH-CV 16.4 % (11.8-14.6); RBC DIS.WIDTH-SD 54.9 % (39-53); RED BLOOD COUNT 3.13 M/uL (4.00-5.50); WHITE BLOOD COUNT 8.7 K/uL (4.1-10.2)
[2017-09-12 12:49] LABS: UR CREATININE CONCENTRATION 82.4 MG/DL
[2017-09-12 16:24] VITALS: BP 154/70
[2017-09-12 20:24] VITALS: BP 145/72
[2017-09-12 23:31] VITALS: BP 150/65
[2017-09-13 06:28] LABS: ALBUMIN 2.7 G/DL (3.2-4.8); CHLORIDE 108 MEQ/L (99-109); GFR ESTIMATE (CALCULATED) 34 mL/min/ (58.99-99999); GLUCOSE 108 mg/dL (70-99); POTASSIUM 4.3 MEQ/L (3.7-5.4); SODIUM 139 MEQ/L (136-147); UREA NITROGEN (BUN) 29 mg/dL (9-23)
[2017-09-13 08:15] VITALS: BP 190/80
[2017-09-13 12:45] VITALS: BP 145/70
[2017-09-13 16:00] VITALS: BP 166/79
[2017-09-13 20:12] VITALS: BP 169/63; BP 169/83
[2017-09-13 23:46] VITALS: BP 150/72
[2017-09-14 07:04] LABS: HEMATOCRIT 27.5 % (38.0-50.0); HEMOGLOBIN 8.7 G/DL (12.5-16.6); MCH 28.5 PG (29.0-34.0); MCHC 31.6 G/DL (30.0-36.0); MCV 90.2 FL (86-99); PLATELET COUNT 92 K/uL (156-360); RBC DIS.WIDTH-CV 16.3 % (11.8-14.6); RBC DIS.WIDTH-SD 53.5 % (39-53); RED BLOOD COUNT 3.05 M/uL (4.00-5.50); WHITE BLOOD COUNT 7.4 K/uL (4.1-10.2)
[2017-09-14 07:27] LABS: ALBUMIN 2.7 G/DL (3.2-4.8); CHLORIDE 106 MEQ/L (99-109); CREATININE 1.9 MG/DL (0.6-1.3); GFR ESTIMATE (CALCULATED) 36 mL/min/ (58.99-99999); GLUCOSE 111 mg/dL (70-99); PHOSPHORUS 3.7 mg/dL (2.5-4.9); POTASSIUM 4.1 MEQ/L (3.7-5.4); SODIUM 138 MEQ/L (136-147); UREA NITROGEN (BUN) 29 mg/dL (9-23)
[2017-09-14 08:19] VITALS: BP 185/79
[2017-09-14 14:38] VITALS: BP 137/81
[2017-09-14 23:44] VITALS: BP 145/88
[2017-09-15 06:33] LABS: ALBUMIN 2.7 G/DL (3.2-4.8); CHLORIDE 108 MEQ/L (99-109); CREATININE 2.1 MG/DL (0.6-1.3); GFR ESTIMATE (CALCULATED) 32 mL/min/ (58.99-99999); GLUCOSE 108 mg/dL (70-99); PHOSPHORUS 3.9 mg/dL (2.5-4.9); POTASSIUM 4.1 MEQ/L (3.7-5.4); SODIUM 140 MEQ/L (136-147); UREA NITROGEN (BUN) 29 mg/dL (9-23)
[2017-09-15 07:43] VITALS: BP 167/74
[2017-09-15 14:32] LABS: A/G RATIO 1.6 (1.1-1.8); ALBUMIN 2.9 G/DL (3.4-5.0); GLOBULINS 1.8 G/DL (2.3-3.5); TOTAL PROTEIN 4.7 G/DL (6.4-8.2)
[2017-09-15 15:41] VITALS: BP 187/88
[2017-09-15 19:03] LABS: URINE TOTAL PROTEIN 83 MG/DL (0-10)
[2017-09-16 14:03] LABS: ALBUMIN 2.73 G/DL (3.6-4.9); ALPHA-2 GLOBULIN 0.44 G/DL (0.45-0.85); BETA-GLOBULIN 0.54 G/DL (0.65-1.15); GAMMA-GLOBULIN 0.59 G/DL (0.60-1.35)
== END 2017-09-15 18:33 | disposition home health service (06) | DRG 690 ==
LOC: EME 19:27 → EDOF 21:18 → 5SOUTH 21:18 → ENRESERV 21:23 → 5SOUTH 23:22
PROVIDERS: Hospitalist; Internal Medicine Nephrology; Physician Assistant; Physician Assistant Medical; Student in an Organized Health Care Education/Training Program
DX: N30.00 Acute cystitis without hematuria (principal); N17.9 Acute kidney failure, unspecified; R53.1 Weakness; N28.1 Cyst of kidney, acquired; D64.9 Anemia, unspecified; H35.30 Unspecified macular degeneration; E88.09 Other disorders of plasma-protein metabolism, not elsewhere classified; G30.9 Alzheimer's disease, unspecified; I10 Essential (primary) hypertension; E78.5 Hyperlipidemia, unspecified; F02.80 Dementia in other diseases classified elsewhere, unspecified severity, without behavioral disturbance, psychotic disturbance, mood disturbance, and anxiety; E86.0 Dehydration; B96.1 Klebsiella pneumoniae [K. pneumoniae] as the cause of diseases classified elsewhere; Z66 Do not resuscitate; Z87.891 Personal history of nicotine dependence; Z68.1 Body mass index [BMI] 19.9 or less, adult; Z80.0 Family history of malignant neoplasm of digestive organs; Z85.46 Personal history of malignant neoplasm of prostate; Z81.8 Family history of other mental and behavioral disorders
CPT/HCPCS: 36415; 76770; 80048; 80061; 80069; 81003; 82533; 82570; 82728; 83540; 83735; 83970 GA; 84100; 84133; 84156; 84165; 84300; 84466; 85025; 85027; 85652; 86335; 87077; 87086; 87186; 89190; 93970; 99281; 99285; J0690; J0696; J1644; J7030; J7120